=== PATIENT | male | born 2000 | race Caucasian/White ===

== ENCOUNTER 2024-05-13 17:21 | Emergency (ER) | payer OTHER, SELFPAY ==
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
[2024-05-13 17:48] VITALS: BP 102/72; PULSE 60; RESP 20; TEMP 36.7; O2SAT 100; BMI 30.3
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
[2024-05-13 19:01] LABS: Influenza A PCR NEGATIVE (Negative); Influenza B PCR NEGATIVE (Negative); Resp Syncy Virus RNA Qual PCR NEGATIVE (Negative); SARS COV2 PCR INHOUSE NEGATIVE (Negative)
[2024-05-13 20:34] VITALS: BP 106/50; PULSE 53; RESP 17; TEMP 36.8; O2SAT 98
[2024-05-13 20:56] VITALS: BP 106/50; PULSE 53; RESP 17; TEMP 36.8; O2SAT 98
== END 2024-05-13 20:57 | disposition home or self-care (01) ==
PROVIDERS: Physician Assistant; Emergency Provider Internal Medicine
DX: S61.401A Unspecified open wound of right hand, initial encounter (principal); L03.113 Cellulitis of right upper limb; M79.641 Pain in right hand; R50.9 Fever, unspecified; V19.9XXA Pedal cyclist (driver) (passenger) injured in unspecified traffic accident, initial encounter; Y93.9 Activity, unspecified; Y92.410 Unspecified street and highway as the place of occurrence of the external cause; Y99.8 Other external cause status; Z03.818 Encounter for observation for suspected exposure to other biological agents ruled out
CPT/HCPCS: 0241U; 73110; 73130; 99282; 99283